=== PATIENT | female | born 1980 | race Caucasian/White ===

== ENCOUNTER 2023-12-26 14:02 | Day surgery (SDC) | payer OTHER, SELFPAY ==
[2023-12-26] VITALS (9 sets, daily range): BP systolic 123–174; BP diastolic 75–96; BMI 31.9
[2023-12-26] MEDS: TORADOL 30 MG IV (10:48)
--- NOTE | 2023-12-26 10:49 | ED.GENMED ---
History of Present Illness
General
Chief Complaint: Abdominal Pain
Source: patient
Time Seen by Provider: 12/26/23 10:21
History of Present Illness
History of Present Illness:
43-year-old female with past medical history of hypertension and IBS presenting to the emergency department for evaluation of right lower quadrant abdominal pain that began yesterday, sharp and cramping, intermittently felt in the right flank as
well and accompanied with 3 episodes of loose stool which she states is pretty typical for her usual IBS and not something that is currently bothering her. She denies any fevers, chills, rigors, urinary symptoms or any other concerns. She did not
attempt any medication for relief today. Notes a previous surgical history of previous cholecystectomy and section. Last menstrual was 1 week ago. No other concerns.
Past History
Past History
ED Past Medical History: HTN
ED Past Surgical History: Cholecystectomy and
Social History
Tobacco: Non-smoker
Alcohol: Occasional
Drug: None
Personal:
Living: with family
Employment: Employed
Review of Systems
Review of Systems
All Other Systems: ROS reviewed and negative except as documented in HPI and ROS
Phy Exam
Physical Exam
Physical Exam:
GENERAL: Alert , in no apparent distress
EYE: clear conjunctiva b/l
HEAD: NCAT
ENT: mmm.
CARDIAC: Regular rate and rhythm .
LUNGS: Clear breath sounds bilaterally, no acute respiratory distress, no wheezes/rales/rhonchi
ABDOMEN: Soft, right lower quadrant tenderness with palpation, grimaces when palpating the right lower quadrant, no r/g, no cvat
NEUROLOGICAL: Alert and oriented
SKIN: Warm and dry, skin intact.
MUSCULOSKELETAL: No edema, well perfused.
PSYCH: Normal and appropriate interaction.
Scores
Heart Failure Risk
Heart Failure Risk Score: Not Applicable
Heart Score for Chest Pain Patients
STEMI patient?: Not applicable
Withdrawal Assessment of Alcohol
Withdrawal Assessment Completed?: Not applicable
Course
Orders/Labs/Results
Orders:
Orders
12/26/23 10:38
CT Abd/pelvis W Iv Cont Urgent
Comment:
Reason For Exam: right lower abd pain, previous choley
Ketorolac [Toradol] 30 mg IV NOW STA
Test Result ONCE
12/26/23 10:43
Complete Blood Count/With Diff Urgent
Comprehensive Metabolic Panel Urgent
HCG, Serum Qualitative Screen Urgent
Lipase Urgent
12/26/23 11:27
Urinalysis Reflex To Culture Urgent
Date Specimen was Collected: 12/26/23
Time Specimen was Collected: 11:26
Urine Microscopic Reflex Cult Urgent
12/26/23 12:39
HYDROmorphone [Dilaudid] 0.5 mg IV NOW STA
12/26/23 12:47
Type+Screen Urgent
12/26/23 13:00
ABO2 Urgent
BBK Wristband Number:
Associate notified that ABO2 has been ordered: [id number]
Date: 12/26/23
Time: 13:01
[employer] Make Up Helper ID: [id number]
12/26/23 13:01
Dexamethasone Sod Phosphate [Decadron] 20 mg .ROUTE .STK-MED ONE
Fentanyl Citrate/Pf [Sublimaze] 100 mcg .ROUTE .STK-MED ONE
Lidocaine HCl/Pf [Xylocaine-Mpf 1% Vial] 50 mg .ROUTE .STK-MED ONE
Midazolam HCl [Versed] 2 mg .ROUTE .STK-MED ONE
Ondansetron Injectable [Zofran] 4 mg .ROUTE .STK-MED ONE
Propofol [Diprivan] 20 ml .ROUTE .STK-MED
Rocuronium [place] [Rocuronium] 50 mg .ROUTE .STK-MED ONE
12/26/23 13:06
HYDROmorphone [Dilaudid] 0.25 mg IV PACU-Q5MPRN PRN
HYDROmorphone [Dilaudid] 0.5 mg IV PACU-Q5MPRN PRN
Meperidine [Demerol] 12.5 mg IV PACU-Q5MPRN PRN
Ondansetron Injectable [Zofran] 4 mg IV PACU-ONCEPRN PRN
Prochlorperazine [Compazine] 5 mg IV PACU-ONCEPRN PRN
Notify MD As Directed
Notify physician if: for SDS patients with known or suspected sleep obstructive sleep apnea, monitor in the
PACU.
Notify MD for any apneic/desaturation episodes
O2 Therapy [RESP] Urgent
Titrate/Wean O2 to maintain O2 sat greater than (%): 92
Special Instructions: -Provide supplemental oxygen to achieve O2 sat of 92% or greater.
-After 15 min, may wean O2 and discontinue if patient is able to maintain O2 sat of 92%
or greater during recovery period.
If patient is a discharge home, without oxygen therapy, notify anestheiologist if
unable to maintain O2 SAT of 92% or greater on room air for MD clearance.
12/26/23 13:07
Piperacillin/Tazo 3.375 Gram [Zosyn] 3.375 gram in 50 ml IV NOW
Abnormal Lab Results
12/26/23 12/26/23
10:43 11:27
WBC 12.2 H 10^3/uL
(4.8-10.8)
Hct 36.7 L %
(37.0-47.0)
Absolute Neuts (auto) 8.8 H 10^3/uL
(1.4-6.5)
Absolute Monos (auto) 1.0 H 10^3/uL
(0.1-0.6)
Lymphocytes % 17.9 L %
(20.5-51.1)
Glucose 104 H mg/dl
(70-99)
Ur Occult Blood Reflex 1+ A
(Negative)
12/26/23 10:43
12/26/23 10:43
Vital Signs
Initial and Last Documented VS:
Initial Vital Signs
Temp Pulse Resp BP Pulse Ox
98.3 F 93 18 174/96 97
12/26/23 09:58 12/26/23 09:58 12/26/23 09:58 12/26/23 09:58 12/26/23 09:58
Last Documented Vital Signs
Temp Pulse Resp BP Pulse Ox
98.3 F 93 18 174/96 97
12/26/23 09:58 12/26/23 09:58 12/26/23 09:58 12/26/23 09:58 12/26/23 09:58
MDM/Problems Addressed
Differential Diagnosis Includes:
Appendicitis, renal/ureteral colic, colitis, diverticulitis, pancreatitis, less concern for
MDM/Problems Addressed:
43-year-old female presenting to the ER for evaluation of right-sided abdominal pain x 1 day. mild loose stool but this is normal for the patient. Quite tender on exam in the RLQ. Patient stating pain radiated into right flank. conern for
appendicitis vs renal/ureteral colic. Will check labs, UA, CT imaging. Toradol ordered for pain control
*Radiology
Radiology exam reviewed: radiology read reviewed
*Pulse Oximetry
Patient hypoxic: no
*Critical Care Note
Total Time (30-74mins, 75-104mins- exclusive of procedures): Not Applicable
Patient Management
Discussion with other providers: Vegetable Sorter
Escalation/DeEscalation of care consider admission/obs:
Patient CT scan shows acute uncomplicated appendicitis. Case was reviewed with general surgery who will take the patient to the OR. Zosyn ordered. Patient remained stable and advised to remain n.p.o. She did report some mild relief with Toradol
but requesting something else for pain. 0.5mg of Dilaudid ordered.
ED Attending Note
-
Portions of this chart may have been created with voice recognition software.� Occasional wrong word or��sound alike� substitutions may have occurred due to the inherent limitations of voice recognition software.
Discharge Plan
Departure
Patient Disposition: Admit
Date of Disposition: 12/26/23
Time of Disposition: 12:33
Presentation/result/management discussed w/ accepting MD/DO: Lissa
Discharge Problem:
Acute appendicitis
Prescriptions:
No Action
multivitamin Tablet
1 tab PO DAILY
Referrals:
Joann Escobedo DO [Family Provider] -
Interventions
Interventions:
*Risk Screen - Suicide Last Done: 12/26/23 09:58
*Neglect/Abuse Screening Last Done: 12/26/23 09:58
*ED COVID-19 Vaccine History Last Done: 12/26/23 09:58
Discharge Date and Time
Print Language: SPANISH
[2023-12-26 11:00] LABS: % Basophils 0.6 % (0-2); % Eosinophils 1.2 % (0-6); % Immature Granulocytes 0.2 % (0-0.5); % Lymphocytes 17.9 % (20.5-51.1); % Monocytes 8.2 % (1.7-9.3); % Neutrophils 71.9 % (42.2-75.2); Absolute Basophils 0.1 10^3/uL (0-0.2); Absolute Eosinophils 0.2 10^3/uL (0-0.7); Absolute Lymphocytes 2.2 10^3/uL (1.2-3.4); Absolute Neutrophils 8.8 10^3/uL (1.4-6.5); Hematocrit 36.7 % (37.0-47.0); Hemoglobin 12.8 g/dL (12.0-16.0); Mean Corp Hgb Conc. 34.9 g/dL (33.0-37.0); Mean Corpuscular Volume 85.9 fL (81.0-99.0); Mean Platelet Volume 9.5 fL (7.4-10.4); Nucleated Red Blood Cells % 0 %; Platelet Count 304 10^3/uL (130-400); Red Blood Cell Count 4.27 10^6/uL (4.20-5.40); Red Cell Dist. Width 12.8 % (11.5-14.5); White Blood Cell Count 12.2 10^3/uL (4.8-10.8)
[2023-12-26 11:09] LABS: HCG, Serum Qualitative Screen Negative
[2023-12-26 11:12] LABS: ALT (SGPT) 30 U/L (0-35); AST (SGOT) 25 U/L (14-36); Albumin 4.5 g/dl (3.5-5.0); Alkaline Phosphatase 95 U/L (38-126); Blood Urea Nitrogen 11 mg/dl (7-17); Calcium 9.4 mg/dl (8.4-10.2); Carbon Dioxide 25 mmol/L (22-30); Chloride 104 mmol/L (98-107); Estimated Creatinine Clearance 115 ml/min; Glucose 104 mg/dl (70-99); Potassium 4.1 mmol/L (3.5-5.1); Sodium 141 mmol/L (135-145); Total Protein 7.1 g/dl (6.3-8.2); eGFR > 60.00
[2023-12-26 11:37] LABS: Urine Albumin Negative (Neg - Trace); Urine Bilirubin Negative (Negative); Urine Character Slightly Cloudy (Clear); Urine Color Yellow; Urine Glucose Negative (Negative); Urine Ketone Negative (Negative); Urine Leukocyte Negative (Negative); Urine Nitrite Negative (Negative); Urine Occult Blood 1+ (Negative); Urine Urobilinogen Negative (Neg - 1+)
[2023-12-26 11:43] LABS: Urine Red Blood Cell 0-2 /HPF (0-2); Urine Squamous Cell >30 /LPF (Few); Urine White Cell 0-2 /HPF (0-5)
[2023-12-26 11:45] LABS: Lipase 125 U/L (23-300)
[2023-12-26] MEDS: DILAUDID 0.5 MG IV (12:43)
[2023-12-26] MEDS: ZOSYN 50 IV (13:18)
--- NOTE | 2023-12-26 15:09 | CON.GS ---
Consultation
-
Requesting Provider: John
Performing Provider: Lissa
Reason for Consultation: Acute appendicitis
Medical History
-
Chief Complaint: Abd pain
History of Present Illness:
43F with acute onset RLQ pain that began yesterday, described as sharp and crampy, intermittent, with some radiation around right flank. No exacerbating/relievinf factors. No anorexia. Endorses diarrhea, denies f/c/n/v.
Past Medical History
Past Medical History: HTN
Past Surgical History: Cholecystectomy and
Social History
Tobacco: Non-Smoker
Alcohol: Occasional
Drug: None
Personal:
Living: With Family
Employment: Employed
Family History
Family History: Reviewed & Noncontributory
Allergies / Home Medications
Allergy/AdvReac Type Severity Reaction Status Date / Time
bee venom protein (honey bee) Allergy Anaphylaxis Verified 12/26/23 13:10
nitrofurantoin Allergy Anaphylaxis Verified 12/26/23 13:10
[From Macrobid]
Sulfa (Sulfonamide Allergy Rash Verified 12/26/23 13:10
Antibiotics)
�Medication �Instructions �Recorded �Confirmed �Type
multivitamin 1 tab PO DAILY Supplement 12/26/23 12/26/23 History
oxycodone 5 mg tablet 5 - 10 mg (1 - 2 x 5 mg) PO Q4HPRN 12/26/23 Rx
PRN moderate to severe pain #16
tabs
Review of Systems
-
A 10 point review of systems was completed, and was negative except as per HPI.
Physical Exam
Vital Signs
Temp Pulse Resp BP Pulse Ox
98.2 F 80 18 157/83 99
12/26/23 13:23 12/26/23 13:23 12/26/23 13:23 12/26/23 13:23 12/26/23 13:23
12/25/23 12/26/23 12/27/23
06:59 06:59 06:59
Actual Weight 87 kg
Body Mass Index (BMI) 31.9
Lab Results
12/26/23 10:43
12/26/23 10:43
WBC 12.2 10^3/uL (4.8-10.8) H 12/26/23 10:43
Hgb 12.8 g/dL (12.0-16.0) 12/26/23 10:43
Hct 36.7 % (37.0-47.0) L 12/26/23 10:43
Plt Count 304 10^3/uL (130-400) 12/26/23 10:43
Abs Immat Gran (auto) 0.0 10^3/uL (0-0.05) 12/26/23 10:43
Neutrophils % 71.9 % (42.2-75.2) 12/26/23 10:43
Physical Exam
General: Well Developed, Well Nourished and No Apparent Distress
GI: Soft and Tender (rlq ttp)
Skin: Warm and Dry
Neuro: AO x 3
Psych: Calm
Data Reviewed
-
CT Scan: Image Personally Visualized and interpreted, Report Reviewed by me, Discussed with Physician, Discussed with Patient and Discussed with Family
Labs: Labs Reviewed by me, Discussed with Physician, Discussed with Patient and Discussed with Family
Old Records: Reviewed
Assessment / Plan
-
43F with acute appendicitis
AFVSS, no blood thinners.
CT c/w acute uncomplicated appendicitis
Plan:
IV abx
OCTOR for lap appy.
Informed consent obtained.
--- NOTE | 2023-12-26 15:13 | OR.RPT ---
Operative Report
Operative Report
Primary Surgeon: Lissa
Pre-op Diagnosis: Acute appendicitis
Post-op Diagnosis: Same
Procedure Performed: Laparoscopic appendectomy
Anesthesia Type: GETA
Specimen / Cultures: Appendix
Estimated Blood Loss: 35cc
Complications: Superficial veress injury to left liver lobe, hemostatic upon inspection
Operative Findings: Mildly inflamed hyperemic appendix
Date of Surgery: 12/26/23
Indications: This 43F developed right lower quadrant abdominal pain and on workup was found to have acute appendicitis. Laparoscopic appendectomy was elected.
Description of procedure: The patient was placed on the operating table in the supine position. General anesthesia was induced. A time-out was completed verifying correct patient, procedure, site, positioning, and special equipment prior to
beginning this procedure. An orogastric tube was placed. The abdomen was prepped and draped in the usual sterile fashion. A stab incision was made in left upper quadrant and the Veress needle was inserted. Proper position was confirmed by aspiration
and saline meniscus test. The abdomen was insufflated with carbon dioxide to a pressure of 12 mmHg. The patient tolerated insufflation well.
A 5mm optical trocar was then inserted at the left lower quadrant. The laparoscope was inserted and the abdomen inspected. A superficial injuries from the veress needle was noted on the left liver lobe. It was observed for several minutes and noted
to be hemostatic. There were no injuries from initial trocar placement. Additional trocars were then inserted in the following locations: a 12-mm trocar at the umbilicus and a 5-mm trocar midline in the suprapubic space. The abdomen was inspected
and no abnormalities were found. The table was placed in the Trendelenburg position with the right side up. The tip of the appendix was gently grasped with an atraumatic grasper and retracted toward the patient�s feet and abdominal wall. This
maneuver exposed the appendiceal blood supply which was controlled with the voyant device. Following this, a laparoscopic linear cutting stapler with a 45mm tracy load was deployed and used to transect the appendix at its base. The appendix was placed
in an endoscopic retrieval bag, removed through the umbilical port, and passed off the table as a specimen.
We then turned our attention to the staple line, which was noted to be hemostatic. Scant turbid free fluid was suctioned from the pelvis. The umbilical trocar site was closed at the fascial level laparoscopically with 2-0 PDS under direct vision.
Secondary trocars were removed under direct vision and noted to be hemostatic. The laparoscope was withdrawn and the abdomen was allowed to collapse. The skin was closed with subcuticular sutures of 4-0 monocryl and topical skin adhesive. The
orogastric tube was removed.
The patient tolerated the procedure well and was taken to the postanesthesia care unit in stable condition.
== END 2023-12-26 16:26 | disposition home or self-care (01) ==
LOC: PACU 14:02
PROVIDERS: Physician Assistant Medical; ATTENDING PHYSICIAN Surgery; EMERGENCY PHYSICIAN Student in an Organized Health Care Education/Training Program; FAMILY PHYSICIAN Family Medicine
DX: K35.80 Unspecified acute appendicitis (principal); S36.113A Laceration of liver, unspecified degree, initial encounter; W45.8XXA Other foreign body or object entering through skin, initial encounter
CPT/HCPCS: 44970; 88304; 74177; 80053; 81003; 81015; 83690; 84703; 85025; 86850; 86900; 86901; 96365; 96375; 99285; C1776; Q9967

== ENCOUNTER → 2024-04-21 16:09 | Outpatient (REF) | payer OTHER, SELFPAY | LOC: HWWDC 16:09 | PROVIDERS: ATTENDING PHYSICIAN Family Medicine; REFERRING PHYSICIAN Internal Medicine | DX: Z12.31 Encounter for screening mammogram for malignant neoplasm of breast (principal); M54.2 Cervicalgia; M47.812 Spondylosis without myelopathy or radiculopathy, cervical region; M79.18 Myalgia, other site; S13.4XXD Sprain of ligaments of cervical spine, subsequent encounter | CPT/HCPCS: 72052; 77063; 77067 ==